=== PATIENT | female | born 1950 | race Two or more races ===

== ENCOUNTER 2025-02-21 08:57 | Outpatient (CLI) | payer MEDICARE ==
[2025-02-21 09:48] LABS: Hematocrit 43.4 % (36.0-46.0); Hemoglobin 14.9 g/dL (12.2-16.2); Mean Corpuscular Hemoglobin 30.2 pg (28.0-32.0); Mean Corpuscular Volume 87.8 fL (80.0-100.0); Nucleated Red Blood Cells % 0.0 %
[2025-02-21 09:57] LABS: Alanine Aminotransferase 17 U/L (7-40); Albumin 4.8 g/dL (3.2-4.8); Alkaline Phosphatase 65 U/L (46-116); Anion Gap 7 (5-15); BUN/Creatinine Ratio 16.9 (10.0-20.0); Blood Urea Nitrogen 14 mg/dL (9-23); Calcium 9.7 mg/dL (8.7-10.4); Carbon Dioxide 26 mmol/L (20-31); Chloride 105 mmol/L (98-107); HDL Cholesterol 48 mg/dL (40-59); Potassium 4.2 mmol/L (3.5-5.1); Sodium 138 mmol/L (136-145); Total Protein 7.5 g/dL (5.7-8.2)
[2025-02-21 09:58] LABS: Bilirubin, Total 0.4 mg/dL (0.2-1.0)
[2025-02-21 10:19] LABS: Cholesterol 294 mg/dL (< 200); Glucose 159 mg/dL (74-106); Triglycerides 264 mg/dL (< 150)
[2025-02-21 12:02] LABS: Urine Protein, UAD Negative (Negative)
== END 2025-02-21 17:00 | disposition home or self-care (01) ==
LOC: LAB 08:57
PROVIDERS: ATTEND Nurse Practitioner
DX: I10 Essential (primary) hypertension (principal); E78.5 Hyperlipidemia, unspecified; R73.9 Hyperglycemia, unspecified
CPT/HCPCS: 36415; 80053; 80061; 81001; 83036; 84443; 85025

== ENCOUNTER 2025-06-06 06:26 | Inpatient (IN) | payer MEDICARE, OTHER ==
[2025-06-06] VITALS (50 sets, daily range): BP systolic 116–174; BP diastolic 36–85; PULSE 48–144; RESP 10–24; TEMP 98.2–98.9; O2SAT 82–100
[~2025-06-06] VITALS: Ht 157.5 cm; Wt 77.0 kg
--- NOTE | 2025-06-06 06:50 | ED.PDOC ---
HPI Comments [age] year old female with a history of hypertension, diabetes here today with complaints of substernal, sharp chest pain that started at approximately 2:00 a.m. this morning. Patient states that she has never had this pain before. States that her whole body feels weak and she feels nauseous as well. No vomiting. No shortness of breath. No diaphoresis. No loss of consciousness. Does not smoke cigarettes. No other pain or symptoms. Chief Complaint: Chest Pain Time Seen by MD: 06:27 Past Medical History PAST MEDICAL HISTORY: DM, HTN Cardiovascular: reports: chest pain Gastrointestinal: reports: nausea Neurological: reports: weakness Physical Exam General Appearance: No Apparent Distress, Normal HEENT: Normal ENT Inspection, Pharynx Normal, TMs Normal Neck: Full Range of Motion, Non-Tender, Normal, Normal Inspection Respiratory: Chest Non-Tender, Lungs Clear, No Accessory Muscle Use, No Respiratory Distress, Normal Breath Sounds Cardiovascular: No Edema, No JVD, No Murmur, No Gallop, Normal Peripheral Pulses, Regular Rate/Rhythm Breast Exam: Deferred Gastrointestinal: No Organomegaly, Non Tender, No Pulsatile Mass, Normal Bowel Sounds, Soft Genitalia: Deferred Pelvic: Deferred Rectal: Deferred Extremities: No calf tenderness, Normal capillary refill, Normal inspection, Normal range of motion, Non-tender, No pedal edema Musculoskeletal : Apperance: Normal Neurologic: Alert, 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 Was a procedure done? Was a procedure done?: No CP Differential Dx Differential Diagnosis: A-fib, A-Flutter, Anxiety / Panic Attack, AV Block 1st Degree, AV Block 2nd Degree, AV Block 3rd Degree, Heart Failure, UT, Pulmonary Embolus, Ventricular Dysrhythmia, V-Fib, V-Tach Time of 1ST Reevaluation: 06:44 Reevaluation 1ST: Unchanged Consultation: Cardiology (I discussed the case extensively with Dr. Markham from cardiology who requested 3000 of heparin, qc lab technician activation, and states that he will be here in a few minutes. No other recommendations at this time.) Patient Education/Counseling: Diagnosis, Treatment Family Education/Counseling: Diagnosis, Treatment SEPSIS Sepsis Screen Physician Orders Complete Blood Count (06/06/25 06:33) Chest Portable (06/06/25 06:33) Comprehensive Metabolic Panel (06/06/25 06:33) Troponin-I Hs (06/06/25 06:33) Electrocardigram (06/06/25 06:33) Troponin-I Hs (06/06/25 07:33) Troponin-I Hs (06/06/25 09:33) Electrocardigram (06/06/25 07:33) Electrocardigram (06/06/25 09:33) Heparin Sodium (Porcine) (06/06/25 06:45) Departure 1 Departure Time of Disposition: 06:44 Impression: Primary Impression: STEMI (ST elevation myocardial infarction) Additional Impressions: History of hypertension History of diabetes mellitus Disposition: ADMITTED INPATIENT Admit to: ICU Condition: Serious Critical Care Note Critical Care Time?: No Stability Stability form required: No Heart Score Heart Score: Heart Score Response (Comments) Value History Highly Suspicious [address]-Deviation 2 Age >65 2 Risk Factors >3 or Hx ASHD 2 Troponin N/A (still pending) 0 Total 8 MURALI MARTÍNEZ MD Jun 06, 2025 06:50
[2025-06-06] MEDS: HEPARIN SODIUM (PORCINE) 5000 UNITS/ML 1ML VIAL IV ONE (06:57)
[2025-06-06] MEDS: ANGIOMAX 250 MG VIAL IV ONE ×2 (07:05→08:10)
[2025-06-06] MEDS: LIDOCAINE 2%HCL (LOCAL ANESTH.) INJ 20ML MDV ONE (07:05)
[2025-06-06] MEDS: fentaNYL CITRATE 100 MCG/2 ML VL ONE (07:05)
[2025-06-06] MEDS: SODIUM CHL 0.9% 50 ML ONE ×2 (07:05→08:10)
[2025-06-06] MEDS: VERAPAMIL 2.5MG/ML INJ 2ML VIAL IV ONE (07:05)
[2025-06-06] MEDS: MIDAZOLAM HCL 2MG/2ML 2ml VIAL (1mg/ml) ONE (07:05)
[2025-06-06] MEDS ORDERED: NITROGLYCERIN 0.4 MG SL TAB SL PRN (07:15)
[2025-06-06] MEDS ORDERED: MORPHINE SULFATE INJ 2 MG/ml SYRG IV PRN ×2 (07:15→14:30)
[2025-06-06 07:16] LABS: Hematocrit 42.2 % (36.0-46.0); Hemoglobin 14.1 g/dL (12.2-16.2); Mean Corpuscular Hemoglobin 29.4 pg (28.0-32.0); Mean Corpuscular Volume 88.2 fL (80.0-100.0); Nucleated Red Blood Cells % 0.0 %
--- NOTE | 2025-06-06 07:19 | DVHINCON2 ---
DATE OF CONSULTATION: 06/06/2025 CARDIOLOGY CONSULTATION REFERRING PHYSICIAN: ER. HISTORY OF PRESENT ILLNESS: The patient is a 74-year-old female with a history of obesity, hypertension, and diabetes coming in with chest pain. It started at about 2:00 a.m. this morning. She has not had this before. An EKG done showing ST elevation. I was called and recommended aspirin and heparin. The patient is a nonsmoker. Her family is at the bedside. She was a walk-in. PAST MEDICAL HISTORY: Hypertension, hyperlipidemia, diabetes. ALLERGIES: PATIENT IS ALLERGIC TO CODEINE. SOCIAL HISTORY: No tobacco, alcohol or illicits. REVIEW OF SYSTEMS: Positive chest pain, positive shortness of breath, positive weakness to the body, positive diaphoresis. PHYSICAL EXAMINATION: VITAL SIGNS: Heart rate is 87, respiratory rate is 20, blood pressure 152/84, O2 sat 99%. GENERAL: The patient is an obese female in no severe distress. HEAD: Normocephalic, atraumatic. ENT: Dry mucous membranes. NECK: Supple. CARDIOVASCULAR: S1, S2. Regular rate and rhythm. LUNGS: Scattered rhonchi. ABDOMEN: Obese, soft, and nontender. LOWER EXTREMITIES: No significant edema. LABORATORY DATA: Labs are all pending. ASSESSMENT/PLAN: 1. Inferior ST-segment elevation myocardial infarction. 2. Obesity. 3. Hypertension. 4. Hyperlipidemia. 5. Diabetes. PLAN: At this point, I would recommend urgent cardiac catheterization and possible intervention. I discussed the risks, benefits, and alternatives of the procedure with the patient. Her was also at the bedside as well as our nurse in ICU bed 8. She wishes to proceed. Chest x-ray was reviewed as well. Further recommendations will follow the patient's clinical course. 90 minutes of critical care time was spent. John Markham MD CM/JAKOB TID: [id number] RECEIPT: [id number]
[2025-06-06] MEDS: ATROPINE SULF 1 MG/10ml SYR ONE (07:27)
[2025-06-06 07:28] LABS: Albumin 4.2 g/dL (3.2-4.8); Alkaline Phosphatase 95 U/L (46-116); Anion Gap 10 (5-15); BUN/Creatinine Ratio 14.9 (10.0-20.0); Bilirubin, Total 0.7 mg/dL (0.2-1.0); Blood Urea Nitrogen 11 mg/dL (9-23); Calcium 9.5 mg/dL (8.7-10.4); Carbon Dioxide 23 mmol/L (20-31); Chloride 102 mmol/L (98-107); Potassium 4.0 mmol/L (3.5-5.1); Total Protein 7.3 g/dL (5.7-8.2)
--- NOTE | 2025-06-06 07:32 | DVH ---
CHEST RADIOGRAPH INDICATION: CHEST PAIN TECHNIQUE: Single frontal view of the chest was obtained COMPARISON: None FINDINGS: Lines and Tubes: None Lungs: No focal consolidation. Pleura: No effusion. No pneumothorax. Cardiomediastinal contours: Unremarkable Bones: No acute osseous abnormality. IMPRESSION: 1. No acute cardiopulmonary disease.
[2025-06-06 07:34] LABS: Alanine Aminotransferase 44 U/L (7-40); Glucose 331 mg/dL (74-106); Sodium 135 mmol/L (136-145)
[2025-06-06] MEDS: EPTIFIBATIDE INJ (2MG/ML) 10ML VIAL IV ONE ×2 (07:47→08:20)
[2025-06-06] MEDS: IODIXANOL 320MG/ML 100ML BTL IV ONE ×3 (07:56→09:38)
[2025-06-06] MEDS: EPTIFIBATIDE DRIP(0.75MG/ML) 100 ML IV SCH (08:30)
[2025-06-06] MEDS: EPTIFIBATIDE DRIP(0.75MG/ML) 100 ML IV ONE ×2 (08:35→14:54)
[2025-06-06] MEDS: TICAGRELOR 90 MG TAB ONE (08:40)
[2025-06-06] MEDS: HEPARIN IN NS 1000Units/500mL 1,500 ML ONE (09:38)
--- NOTE | 2025-06-06 10:09 | ECG ---
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
[2025-06-06] MEDS: ONDANSETRON HCL 4 MG/2 ML VIAL ONE (10:53)
[2025-06-06] MEDS: ONDANSETRON HCL 4 MG/2 ML VIAL IV ONE (10:54)
[2025-06-06] MEDS: OPTISON 3ml Vial for INJ IV ONE (10:54)
--- NOTE | 2025-06-06 13:08 | ECG ---
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
[2025-06-06] MEDS: FUROSEMIDE 20 MG/2 ML VIAL IV ONE (14:00)
[2025-06-06] MEDS ORDERED: DEXTROSE (50%) 50ML SYRG IV PRN (14:30)
--- NOTE | 2025-06-06 16:28 | DVHHP2 ---
History of Present Illness Reason for Visit: STEMI status post left heart catheterization with a two RCA stents. History of Present Illness Patient was seen and evaluated by me in recovery room after she had left heart catheterization with known diagnosis of STEMI status post two stents in RCA. Patient is currently denies any chest pain shortness of breaths. Patient denies any known cardiac history in the past. She does have known history of hypert ension dyslipidemia diabetes mellitus type 2. Cardiovascular: HTN, hyperipidemia Endocrine: Diabetes Past Surgical History: None Smoke: No ALCOHOL: none Review of Systems Review of Systems Twelve review of system are negative besides mentioned above. Allergies: Coded Allergies: Codeine (Verified Allergy, Unknown, 06/06/25) Medications Current Medications Medications Dose Ordered Sig/Chuckie Route Start Time Stop Time Status Last Admin Dose Admin Nitroglycerin 0.4 mg Q5MINP PRN SL 06/06/25 07:15 Morphine Sulfate 2 mg Q30M PRN IV 06/06/25 07:15 Hold Ticagrelor 90 mg BID PO 06/06/25 22:00 Hydralazine HCl 10 mg BIDP PRN IV 06/06/25 09:00 Aspirin 81 mg DAILY PO 06/06/25 10:00 Atorvastatin Calcium 40 mg HS PO 06/06/25 22:00 Diagnostic Test (Pha) 1 strip ACHS 06/06/25 17:00 Insulin Human Regular ACHS SC 06/06/25 17:00 Dextrose 50 ml UD PRN IV 06/06/25 14:30 Morphine Sulfate 2 mg Q4HPRN PRN IV 06/06/25 14:30 Hold Eptifibatide 100 ml @ 12 mls/hr Q8H20M IV 06/06/25 08:30 Exam Vital Signs Vital Signs Date Time Temp Pulse Resp B/P (MAP) Pulse Ox O2 Delivery O2 Flow Rate FiO2 06/06/25 14:00 138/72 06/06/25 11:15 52 20 95 06/06/25 07:02 98.6 98.6 06/06/25 06:55 Room Air* 0 21 Exam HEENT pupils are reactive Neck is supple CV is S1-S2 regular rate and rhythm Respiratory diminished breath sounds bases GI positive bowel sound Extremity no edema DIRECTOR OF AUTOMATION no motor deficit Labs/Xrays Labs Test 06/06/25 07:00 Range/Units White Blood Count 12.6 H 4.4-10.8 10^3/uL Red Blood Count 4.78 4.0-5.20 10^6/uL Hemoglobin 14.1 12.2-16.2 g/dL Hematocrit 42.2 36.0-46.0 % Mean Corpuscular Volume 88.2 80.0-100.0 fL Mean Corpuscular Hemoglobin 29.4 28.0-32.0 pg Mean Corpuscular Hemoglobin Concent 33.4 32.0-36.0 g/dL Red Cell Distribution Width 13.6 11.8-14.3 % Platelet Count 230 140-450 10^3/uL Mean Platelet Volume 8.9 6.9-10.8 fL Neutrophils (%) (Auto) 71.8 37.0-80.0 % Lymphocytes (%) (Auto) 20.3 10.0-50.0 % Monocytes (%) (Auto) 6.8 0.0-12.0 % Eosinophils (%) (Auto) 0.4 0.0-7.0 % Basophils (%) (Auto) 0.7 0.0-2.0 % Neutrophils # (Auto) 9.0 H 1.6-8.6 10 ^3/uL Lymphocytes # (Auto) 2.6 0.4-5.4 10 ^3/uL Monocytes # (Auto) 0.9 0-1.3 10 ^3/uL Eosinophils # (Auto) 0.1 0-0.8 10 ^3/uL Basophils # (Auto) 0.1 0-0.2 10 ^3/uL Nucleated Red Blood Cells 0.0 % Sodium Level 135 L 136-145 mmol/L Potassium Level 4.0 3.5-5.1 mmol/L Chloride Level 102 98-107 mmol/L Carbon Dioxide Level 23 20-31 mmol/L Anion Gap 10 5-15 Blood Urea Nitrogen 11 9-23 mg/dL Creatinine 0.74 0.550-1.02 mg/dL Glomerular Filtration Rate Calc 85 >90 mL/min BUN/Creatinine Ratio 14.9 10.0-20.0 Serum Glucose 331 H 74-106 mg/dL Calcium Level 9.5 8.7-10.4 mg/dL Total Bilirubin 0.7 0.2-1.0 mg/dL Aspartate Amino Transferase (AST) 73 H 13-40 U/L Alanine Aminotransferase (ALT) 44 H 7-40 U/L Alkaline Phosphatase 95 46-116 U/L Troponin I High Sensitivity 5950 *H </=34 ng/L Total Protein 7.3 5.7-8.2 g/dL Albumin 4.2 3.2-4.8 g/dL SEPSIS Sepsis Screen Date sepsis recognized/suspect: Jun 06, 2025 Time Sepsis recognized/suspect: 654 Recent Procedure: No On Antibiotic Therapy: No Respiratory Rate >20: No Heart Rate >90: Yes Temp<36 C (96.8 F) or >38.3 C: No SBP <90 or MAP <65 mmHG: No New Acute Mental Status Change: No Is the patient on CPAP, BIPAP,: No Physician Orders Ticagrelor (Brilinta) (06/06/25 22:00) Hydralazine Injection (Apresoline Inject (06/06/25 09:00) Atorvastatin (Lipitor) (06/06/25 22:00) Communication Order (06/06/25 08:50) Aspirin Chewable Tablet (06/06/25 10:00) Post Cath Vital Signs Q 15min (06/06/25 09:39) Post Cath Activity Protocol (06/06/25 09:39) Consistent Carb(Ccho)Diabetes (06/06/25 Lunch) Glucose Blood (Accu-Chek Comfort Curve T (06/06/25 17:00) Insulin R (Human) (Insulin R) (06/06/25 17:00) Dextrose 50% Syringe (06/06/25 14:30) Morphine Sulfate Injection (06/06/25 14:30) Eptifibatide Drip(0.75mg/Ml) (Integrilin (06/06/25 08:30) Communication Order (06/06/25 15:01) Vital Signs Date Time Temp Pulse Resp B/P (MAP) Pulse Ox O2 Delivery O2 Flow Rate FiO2 06/06/25 14:00 138/72 06/06/25 11:15 52 20 120/60 (80) 95 06/06/25 11:00 51 20 154/62 (92) 95 06/06/25 10:30 52 10 126/57 (80) 95 06/06/25 10:15 51 10 126/57 (80) 92 06/06/25 10:00 51 11 139/59 (85) 95 06/06/25 09:45 50 14 142/66 (91) 95 06/06/25 09:30 50 16 141/61 (87) 95 06/06/25 09:15 49 15 145/63 (90) 96 06/06/25 09:00 62 17 174/72 (106) 93 Laboratory Tests Test 06/06/25 07:00 White Blood Count 12.6 10^3/uL (4.4-10.8) H Medications Medications Dose Ordered Sig/Chuckie Route Start Time Stop Time Status Last Admin Dose Admin Aspirin 324 mg ONCE ONCE PO 06/06/25 07:00 06/06/25 07:02 DC 06/06/25 07:03 324 MG Bivalirudin 250 mg STK-MED ONCE IV 06/06/25 07:05 06/06/25 07:04 DC 06/06/25 07:05 250 MG Bivalirudin 250 mg STK-MED ONCE IV 06/06/25 08:10 06/06/25 08:09 DC 06/06/25 08:10 250 MG Eptifibatide 20 mg STK-MED ONCE IV 06/06/25 08:20 06/06/25 08:19 DC 06/06/25 08:20 20 MG Fentanyl Citrate 100 mcg STK-MED ONCE .ROUTE 06/06/25 07:05 06/06/25 07:04 DC 06/06/25 07:05 50 MCG Furosemide 20 mg ONCE ONCE IV 06/06/25 09:00 06/06/25 09:28 DC 06/06/25 14:00 20 MG Heparin Sodium (Porcine) 3,000 units ONCE ONCE IV 06/06/25 06:45 06/06/25 06:46 DC 06/06/25 06:57 3,000 UNITS Midazolam HCl 2 mg STK-MED ONCE .ROUTE 06/06/25 07:05 06/06/25 07:04 DC 06/06/25 07:05 1 MG Ondansetron HCl 4 mg ONCE ONCE IV 06/06/25 11:15 06/06/25 11:31 DC 06/06/25 10:54 4 MG Perflutren Protein Type A Microsphe 8.7 ml ONCE ONCE IV 06/06/25 11:00 06/06/25 11:01 DC 06/06/25 10:54 8.7 ML Ticagrelor 180 mg STK-MED ONCE .ROUTE 06/06/25 08:40 06/06/25 08:40 DC 06/06/25 08:40 180 MG Assessment/Plan Assessment/Plan 74-year-old female with a known history of hypertension, diabetes mellitus type 2, dyslipidemia who initially presented to the hospital with a chest pain since 2:00 a.m. found to have 1. STEMI status post left heart catheterization with a RCA stenosis status post two stents placement 2. Chest pain secondary to above resolved 3. Hypertension 4. Diabetes mellitus type 2 5. Dyslipidemia 6. Morbid obesity classI -continue aspirin statin Brilinta, follow up Cardiology recommendations. Plan discussed with: Patient My Orders Orders - GEO CORREIA MD Procedure Category Date Status Time Glucose Blood PHA 06/06/25 In Process (Accu-Chek Comfort 17:00 Insulin R (Human) PHA 06/06/25 In Process (Insulin R) 17:00 Dextrose 50% Syringe PHA 06/06/25 In Process 14:30 Morphine Sulfate PHA 06/06/25 In Process Injection 14:30 Date of Service: Jun 06, 2025 Billing Provider: GEO CORREIA MD Common Visit Codes: NOT BILLABLE GEO CORREIA MD Jun 06, 2025 16:28
[2025-06-06] MEDS: ACCU-CHEK COMFORT CURVE STRIP VI SCH (17:00)
[2025-06-06] MEDS: ACETAMINOPHEN 325 MG TAB PO PRN (17:49)
[2025-06-06] MEDS: InsuLIN REG 1unit/0.01ml Soln (100units/ml) SC SCH (17:50)
[2025-06-06] MEDS: TICAGRELOR 90 MG TAB PO SCH (21:09)
[2025-06-06] MEDS: ATORVASTATIN 20 MG TAB PO SCH (21:09)
[2025-06-07] VITALS (43 sets, daily range): BP systolic 104–175; BP diastolic 47–80; PULSE 39–73; RESP 9–25; TEMP 98–98.7; O2SAT 93–100
[2025-06-07] MEDS: hydrALAZINE HCL 20 MG/ML VL IV PRN (03:13)
[2025-06-07] MEDS ORDERED: ATROPINE SULF 1 MG/10ml SYR ONE (04:03)
[2025-06-07] MEDS: DOPamine 1600MCG/ML D5W 250 ML IV SCH (04:15)
[2025-06-07 04:18] LABS: Albumin 3.6 g/dL (3.2-4.8); Alkaline Phosphatase 82 U/L (46-116); Anion Gap 11 (5-15); BUN/Creatinine Ratio 23.4 (10.0-20.0); Bilirubin, Total 1.2 mg/dL (0.2-1.0); Blood Urea Nitrogen 18 mg/dL (9-23); Calcium 9.2 mg/dL (8.7-10.4); Carbon Dioxide 24 mmol/L (20-31); Chloride 100 mmol/L (98-107); Magnesium 1.9 mg/dL (1.6-2.6); Potassium 3.5 mmol/L (3.5-5.1); Total Protein 6.2 g/dL (5.7-8.2)
[2025-06-07] MEDS: DOPamine 1600MCG/ML D5W 250 ML IV ONE (04:18)
[2025-06-07 04:20] LABS: Alanine Aminotransferase 41 U/L (7-40); Glucose 252 mg/dL (74-106); Sodium 135 mmol/L (136-145)
[2025-06-07 04:23] LABS: Hematocrit 38.8 % (36.0-46.0); Hemoglobin 12.8 g/dL (12.2-16.2); Mean Corpuscular Hemoglobin 28.9 pg (28.0-32.0); Mean Corpuscular Volume 87.5 fL (80.0-100.0); Nucleated Red Blood Cells % 0.1 %
[2025-06-07] MEDS: ONDANSETRON HCL 4 MG/2 ML VIAL ONE (04:38)
[2025-06-07] MEDS: ONDANSETRON HCL 4 MG/2 ML VIAL IM ONE (04:45)
[2025-06-07] MEDS ORDERED: fentaNYL CITRATE 100 MCG/2 ML VL ONE (05:05)
[2025-06-07] MEDS ORDERED: ANGIOMAX 250 MG VIAL IV ONE ×2 (05:05→06:24)
[2025-06-07] MEDS ORDERED: SODIUM CHL 0.9% 50 ML ONE ×2 (05:05→06:24)
[2025-06-07] MEDS ORDERED: LIDOCAINE 2%HCL (LOCAL ANESTH.) INJ 20ML MDV ONE (05:05)
[2025-06-07] MEDS ORDERED: MIDAZOLAM HCL 2MG/2ML 2ml VIAL (1mg/ml) ONE (05:05)
[2025-06-07] MEDS ORDERED: IODIXANOL 320MG/ML 100ML BTL IV ONE (05:06)
--- NOTE | 2025-06-07 05:13 | DVHSR ---
APPROVED REPORT EXAM: LIMITED Two-dimensional and M-mode echocardiogram with Doppler, color Doppler and Optison. Blood Pressure: 194/82 mmHg INDICATION STEMI RISK FACTORS Height: 62, Weight: 165 DIMENSIONS LVDd 3.7 (3.8-5.7cm) LA (2D) 3.2 (1.9-4.0cm) Aortic Root 4.0 (2.0-3.7cm) LVDs 2.6 (2.5-4.0cm) LA (MM) (1.9-4.0cm) Aortic Cusp Exc 1.8 (1.5-2.0cm) EF (%) 56.0 (55-70%) Rt. Atrium 3.5 (1.9-4.0cm) Asc. Aorta cm Mitral Valve Mitral Mitral Stenosis E wave 0.62m/s MV Mean GR. mmHg A wave 1.09m/s MV Peak GR. mmHg E/A ratio 0.6 2D MVA cm2 DECEL Time 267ms PRESS 1/2 Time ms Aortic Valve Aortic Valve Aortic Stenosis V1 0.83m/s AO Mean GR. 3mmHg V2 1.10m/s AO Peak GR. 5mmHg LVOT Diameter 1.8 (1.8-2.4cm) Doppler UTE 1.92cm2 AI P 1/2 Time 641.23ms Tricuspid Valve TR Velocity 1.71m/s RVSP 14mmHg Other Information Technically limited study due to body habitus. Optison used. Optison images are at the end of study. Conclusion lvef 35-40% optison used for LV opacification RV low normal funtion left atrium enlarged trace AI mild tricuspid regurg
[2025-06-07] MEDS ORDERED: ONDANSETRON HCL 4 MG/2 ML VIAL ONE (05:39)
[2025-06-07 05:40] LABS: INR 1.01 (0.9-1.15); Partial Thromboplastin Time 31.3 SEC (24.5-34.5); Prothrombin Time 10.7 sec (9.3-11.8)
--- NOTE | 2025-06-07 06:07 | DVHOP ---
DATE OF SURGERY: 06/06/2025 PREOPERATIVE DIAGNOSIS: Massive inferior ST-elevation myocardial infarction. POSTOPERATIVE DIAGNOSES: Massive inferior ST-elevation myocardial infarction. DESCRIPTION OF PROCEDURE: The patient signed informed consent, understanding risks, benefits, and alternatives of procedure, she wished to proceed. She was brought to the laboratory cureman urgently in n.p.o. state. She was prepped in a sterile fashion. Sedation was used per cardiac cath protocol. I gave 1 mL of 2% lidocaine to her right wrist with antegrade femoral puncture. I cannulated the right radial artery and placed a 6-[place] Glides[place]ath Slender. Next, an intra-arterial spasmolytic was administered. I took a [place] catheter, 5-[place] for coronary angiogram. FINDINGS: ? Left main: Very short left main bifurcates into LAD and circumflex. No severe stenosis. ? Circumflex: Large vessel proximally patent giving off several OM branches with diffuse significant disease. Mid circumflex has an 80-90% lesion and distal circumflex is patent. ? LAD: LAD is a severely atretic diseased vessel, proximally heavily diseased and calcified, barely 2 mm. Mid LAD is a complete DRYWALL FINISHER FOREMAN with antegrade collaterals and distal LAD is barely 1.5 mm with several diagonal branches that are extensively diseased. ? RCA: RCA proximally is subacutely occluded. It almost looks like a DRYWALL FINISHER FOREMAN. INTERVENTION: Over a JR4 guide, Angiomax bolus and drip had been initiated. I brought in a 0.014 x 190 cm BMW wire and I crossed to the distal RCA with ease. I brought a 2.0 balloon with multiple balloon inflations. Unfortunately, there was extensive thrombus throughout this entire RCA in the proximal and in the distal portion. I brought a Penumbra catheter several times, probably 3 times during the procedure for mechanical thrombectomy. Each time, I would also use a 2.5 balloon for post-dilatation. Unfortunately, the vessel would continue to re-thrombose. The patient was given intracoronary Integrilin. At this point, I brought 3.0 balloon and performed balloon angioplasty to the proximal portion and I brought a Penumbra catheter for a third time. This was more successful regaining MONIQUE-2 flow. At this point, I decided to proceed with stenting to the proximal and to the ostium of the RCA with two 3.5 mm stents. Please see operative report for full study details. Then following this, angiogram was performed showing excellent flow proximally in the midportion. The distal RCA still has thrombus within it in the very distal portion, not amenable to any intervention mechanically. The patient's hemodynamics were more stable. Her chest pain was free at that time. At this point, the procedure was completed. The patient was started on Integrilin drip. CONCLUSION: Successful PTCA and PCI of subacutely occluded 100% RCA STEMI with extensive heavy thrombus throughout after mechanical thrombectomy and placement of 2 drug-eluting stents. PLAN: ? Admit to ICU. ? The patient is in critical condition. ? The patient has extensive severe coronary artery disease in multiple territories that is likely chronic. ? Check stat echocardiogram. ? Integrilin drip. ? Aspirin and ticagrelor. ? Continue to monitor the patient. John Markham MD CM/APRIL TID: [id number] RECEIPT: [id number]
[2025-06-07] MEDS ORDERED: EPTIFIBATIDE INJ (2MG/ML) 10ML VIAL IV ONE (06:08)
--- NOTE | 2025-06-07 07:52 | DVHPN2 ---
Progress Note Date Seen: Jun 07, 2025 Medical Necessity Reason Pt with a Central, PICC or Fol: No Subjective Other Systems: pt was overnight stable untilabout 330 am pt had CHB i was notified and started dopamine and rcommend to bring cath team in Objective vital signs Vital Sign Date Time Temp Pulse Resp B/P (MAP) Pulse Ox O2 Delivery O2 Flow Rate FiO2 06/07/25 04:30 59 18 146/80 (102) 99 06/07/25 04:00 98.0 98.0 06/07/25 04:00 Nasal Cannula* 2 28 Total Intake and Output 06/06/25 06/06/25 06/07/25 15:00 23:00 07:00 Intake Total 84 ml 336 ml 427.031 ml Balance 84 ml 336 ml 427.031 ml medications Current Medications Medications Dose Ordered Sig/Chuckie Route Start Time Stop Time Status Last Admin Dose Admin Nitroglycerin 0.4 mg Q5MINP PRN SL 06/06/25 07:15 Morphine Sulfate 2 mg Q30M PRN IV 06/06/25 07:15 Hold Ticagrelor 90 mg BID PO 06/06/25 22:00 06/06/25 21:09 90 MG Hydralazine HCl 10 mg BIDP PRN IV 06/06/25 09:00 06/07/25 03:13 10 MG Aspirin 81 mg DAILY PO 06/06/25 10:00 Atorvastatin Calcium 40 mg HS PO 06/06/25 22:00 06/06/25 21:09 40 MG Diagnostic Test (Pha) 1 strip ACHS 06/06/25 17:00 06/06/25 21:12 1 STRIP Insulin Human Regular ACHS SC 06/06/25 17:00 06/06/25 21:14 8 UNITS Dextrose 50 ml UD PRN IV 06/06/25 14:30 Morphine Sulfate 2 mg Q4HPRN PRN IV 06/06/25 14:30 Hold Eptifibatide 100 ml @ 12 mls/hr Q8H20M IV 06/06/25 08:30 06/07/25 00:05 12 MLS/HR Acetaminophen 650 mg Q4HP PRN PO 06/06/25 17:15 06/06/25 17:49 650 MG Dopamine HCl/ Dextrose 250 ml @ 7.031 mls/ hr Q24H IV 06/07/25 04:15 06/07/25 04:15 7.031 MLS/HR Examination: GENERAL:Abnormal, HEENT:Abnormal, LUNGS:Abnormal, CVS:Abnormal, ABDOMEN:Abnormal laboratory and microbiology Laboratory Tests 06/07/25 03:44 Test 06/07/25 03:44 Range/Units Serum Glucose 252 H 74-106 mg/dL Problem List/Assessment/Plan Problem List/Assessment/Plan stemi cad moderate LV dysfunction dm obesity morbid ckd HTN HL pt brought back to CL, showing RCA re thrombosed, s/p cryptanalyst and mechanical thrombectomy improving tom flow from 0 to abut 2. there is still extensive thrombus. TVP was placed pt was intermittent CHB and SR in catholic priest pt off dopamine now restart integrilin gtt spok to family and updated them regarding pts condition, all questions answered consider tx to higher level of care for possible cabg place zee iv lasix pressors as needed guarded prognosis 90 mins critical care time spent Plan discussed with: Patient My Orders My Orders Orders - PREETHI ECKERT MD Procedure Category Date Status Time Ticagrelor (Brilinta) PHA 06/06/25 In Process 22:00 Hydralazine Injection PHA 06/06/25 In Process (Apresoline Inject 09:00 Atorvastatin (Lipitor) PHA 06/06/25 In Process 22:00 Echo 2d Mode Cardiac US 06/06/25 Resulted DOP 08:49 Communication Order ORDERS 06/06/25 Transmitted 08:50 Aspirin Chewable PHA 06/06/25 In Process Tablet 10:00 Post Cath Vital Signs MAGEN 06/06/25 In Process Q 15min 09:39 Post Cath Activity MAGEN 06/06/25 In Process Protocol 09:39 Consistent DIET 06/06/25 Transmitted Carb(Ccho)Diabetes Lunch Eptifibatide PHA 06/06/25 In Process Drip(0.75mg/Ml) 08:30 Communication Order ORDERS 06/06/25 Transmitted 15:01 Communication Order ORDERS 06/06/25 Transmitted 19:36 Mrsa Screen JACQUELYN 06/06/25 In Process 18:52 Dopamine 1600mcg/Ml PHA 06/07/25 In Process D5W 04:15 Cl Left Heart Cath CL 06/07/25 Taken 04:59 Electrocardigram EKG 06/07/25 Logged 02:00 Date of Service: Jun 07, 2025 Billing Provider: PREETHI ECKERT MD Common Visit Codes: NOT BILLABLE PREETHI ECKERT MD Jun 07, 2025 07:52
--- NOTE | 2025-06-07 08:21 | DVHOP ---
DATE OF SURGERY: 06/07/2025 PREOPERATIVE DIAGNOSIS: Complete heart block. POSTOPERATIVE DIAGNOSES: Acute OH, complete heart block. PROCEDURES PERFORMED: * Ultrasound-guided vascular access to the artery and then common femoral artery and common femoral vein. * Placement of transvenous pacemaker implantation. * Coronary angiogram. * Conscious sedation administration and supervision less than 15 minutes as well as greater than 15 minutes. * PTCA, 1 vessel. * Manual aspiration, 1 vessel. * Mechanical thrombectomy attempted, 1 vessel. * Acute OH intervention. * Central venous catheter placement. DESCRIPTION OF PROCEDURE: We managed to obtain emergency consent for the patient. Within about an hour, the patient appeared to go into complete heart block in the ICU with some shortness of breath. I was notified and recommended starting dopamine 2.5 and calling the golf course laborer team in for a re-look angiogram. The patient had been on Integrilin overnight and throughout the day yesterday after a massive STEMI with extensive thrombus despite multiple interventions and attempts to remove thrombus. We had excellent flow at the termination of the procedure on 06/06. The patient was stable on Integrilin until this morning. We discontinued the Integrilin. The patient was brought to the golf course laborer. She was prepped in a sterile fashion. I gave 8 mL of 2% lidocaine to her right groin. I identified her right common femoral artery and right common femoral vein with an 18-gauge Cook needle. I cannulated the right common femoral vein and placed a 6-Chilean sheath and I cannulated the right common femoral artery and also placed a 6-Chilean sheath. Iliofemoral angiogram was performed showing appropriate arteriotomy site. I took a 6-Chilean JR4 catheter and angiogram of RCA. This shows the proximal RCA was acutely occluded, thrombosed proximally. I switched out to a JR4 guide. Angiomax bolus and drip had been initiated. I brought in a 0.014 Whisper wire and I was able to cross into the distal RCA into the RPL. At this point, I took a 2.0 balloon 15 mm and performed balloon angioplasty up to 12 atmospheres with several inflations in the proximal and then in the mid to distal portion. Trying to regain some flow, but there was still extensive thrombus. At this point, I had to switch out from a JR4 guide to using an AL 0.7 guide for better support, and I performed balloon angioplasty with a 2.0 balloon. Following this, I tried a Penumbra catheter, but it would not cross distally. I took a 2.5 balloon and performed balloon angioplasty. Then, I decided to take a microcatheter, Teleport, into the distal RCA. I gave intracoronary Integrilin as well as intracoronary nitroglycerin to the distal RCA. At this point, I rewired into the RPL initially and performed balloon angioplasty distally, and then I rewired into the RPDA as well and performed balloon angioplasty with a 2.0 balloon, improving the flow. I took a manual aspiration with [place] catheter and I was able to remove thrombus from the mid portion of the RCA as well. At this point, I took a microcatheter again into the RPDA and I injected 200 mcg of intracardiac Cardene. This did improve flow as well into the distal bed. Then, I took a 3.5 NC balloon and performed balloon angioplasty to the 2 stents that were placed on 06/06, inflated up to 12 atmospheres twice each about 15 seconds. Then, I removed the balloon. Angiogram was performed. There was significant improvement in the flow, but there was still extensive thrombus in the mid to distal RCA. At this point, all available techniques and options were performed and the patient's heart rate had improved. She had been briefly on dopamine, which I decided to discontinue. At this point, we decided to remove all guides and wires. A 6-Chilean Angio-Seal was used for closure after I placed the transvenous pacer. So via the common femoral vein, we placed the 5-Chilean transvenous pacer into the RV septum. We paced at 120 beats a minute as the patient's intrinsic rhythm had kicked in to about 100 and we had excellent capture to as low as 2 mA. I sutured in place and left it at 6 mA and we will backup pace the patient at 60. CONCLUSION: Successful PTCA of an acutely rethrombosed extensive RCA STEMI thrombosis. PLAN: * I will discuss with Dr. Desai to see if the patient could be transferred to possible higher level of care and see if she may need open-heart surgery given the extensive CAD. * Start Integrilin drip. * Transvenous pacer is in place. * Pressors as needed. John Markham MD CM/TARA TID: [id number] RECEIPT: [id number]
[2025-06-07] MEDS: FUROSEMIDE 20 MG/2 ML VIAL IV ONE (09:10)
--- NOTE | 2025-06-07 15:52 | DVHDS2 ---
Discharge Summary Date of Admission Jun 06, 2025 at 07:10 Date of Discharge: Jun 07, 2025 Labs/Diagnostic Data: Laboratory Results Test 06/07/25 13:35 06/07/25 03:44 POC Glucose 298 mg/dl (70-106) White Blood Count 13.0 10^3/uL (4.4-10.8) Red Blood Count 4.44 10^6/uL (4.0-5.20) Hemoglobin 12.8 g/dL (12.2-16.2) Hematocrit 38.8 % (36.0-46.0) Mean Corpuscular Volume 87.5 fL (80.0-100.0) Mean Corpuscular Hemoglobin 28.9 pg (28.0-32.0) Mean Corpuscular Hemoglobin Concent 33.0 g/dL (32.0-36.0) Red Cell Distribution Width 13.8 % (11.8-14.3) Platelet Count 219 10^3/uL (140-450) Mean Platelet Volume 9.1 fL (6.9-10.8) Neutrophils (%) (Auto) 69.0 % (37.0-80.0) Lymphocytes (%) (Auto) 21.5 % (10.0-50.0) Monocytes (%) (Auto) 8.5 % (0.0-12.0) Eosinophils (%) (Auto) 0.5 % (0.0-7.0) Basophils (%) (Auto) 0.5 % (0.0-2.0) Neutrophils # (Auto) 9.0 10 ^3/uL (1.6-8.6) Lymphocytes # (Auto) 2.8 10 ^3/uL (0.4-5.4) Monocytes # (Auto) 1.1 10 ^3/uL (0-1.3) Eosinophils # (Auto) 0.1 10 ^3/uL (0-0.8) Basophils # (Auto) 0.1 10 ^3/uL (0-0.2) Nucleated Red Blood Cells 0.1 % Prothrombin Time 10.7 sec (9.3-11.8) Prothrombin Time INR 1.01 (0.9-1.15) Activated Partial Thromboplast Time 31.3 SEC (24.5-34.5) Sodium Level 135 mmol/L (136-145) Potassium Level 3.5 mmol/L (3.5-5.1) Chloride Level 100 mmol/L (98-107) Carbon Dioxide Level 24 mmol/L (20-31) Anion Gap 11 (5-15) Blood Urea Nitrogen 18 mg/dL (9-23) Creatinine 0.77 mg/dL (0.550-1.02) Glomerular Filtration Rate Calc 81 mL/min (>90) BUN/Creatinine Ratio 23.4 (10.0-20.0) Serum Glucose 252 mg/dL (74-106) Calcium Level 9.2 mg/dL (8.7-10.4) Magnesium Level 1.9 mg/dL (1.6-2.6) Total Bilirubin 1.2 mg/dL (0.2-1.0) Aspartate Amino Transferase (AST) 88 U/L (13-40) Alanine Aminotransferase (ALT) 41 U/L (7-40) Alkaline Phosphatase 82 U/L (46-116) Troponin I High Sensitivity 8131 ng/L (</=34) Total Protein 6.2 g/dL (5.7-8.2) Albumin 3.6 g/dL (3.2-4.8) Other Laboratory Tests 06/07/25 03:44 Brief Hx & Hospital Course: 74-year-old female with a known history of hypertension, diabetes mellitus type 2, dyslipidemia who initially presented to the hospital with a chest pain for one day found to have STEMI. Patient was status post left heart catheterization with the RCA is two stents placement. Overnight patient went bradycardia again eventually have complete heart block with the vomiting. Patient was taken to irrigation laborer again and angioplasty of the RCA was done as well as transvenous pacemaker was placed. Patient also has a triple-vessel disease Dr. Markham recommended higher level of care for CABG. Patient will be discharged to higher level of care for open heart surgery with the Cardiothoracic surgery. This was explained to the patient in detail who understand verbalized understanding agreeable to plan. All the paperwork and transfer back agreement has been signed. Condition at Discharge: Guarded Final Diagnosis/Problems List 74-year-old female with a known history of hypertension, diabetes mellitus type 2, dyslipidemia who initially presented to the hospital with a chest pain since 2:00 a.m. found to have 1. STEMI status post left heart catheterization with a RCA stenosis status post two stents placement 2. Complete heart block overnight, status post transvenous pacemaker, status post angioplasty again of the RCA, recommended higher level of care for CABG 3. Hypertension 4. Diabetes mellitus type 2 5. Dyslipidemia 6. Morbid obesity classI Discharge Disposition: Acute Care Facility SNF Discharge Will this Physician continue t: No Discharge Instruct/Medications Diet: Cardiac 2g Na,low cholest Activity: See Comment Activity comment: Patient is being transferred to higher level of care inpatient Follow Up/Referral: Please follow up with Cardiology and Cardiothoracic surgery at higher level of care for CABG Medications: Medication reconciled as in the chart. Discharge Statement: "Patient was advised to return to the ER or call 911 if any headaches, dizziness, shortness of breath, chest pain, abdominal pain, bleeding, fevers, or worsening of medical condition. Patient was counseled about treatment plan, medications, possible side effects, patientverbalized understanding. All questions were answered to the best of my ability. This discharge took greater then 30 minutes in planning, reviewing documentation, counseling the patient, and discussing with other team members." ASSESSMENT ASSESSMENT Assessment 74-year-old female with a known history of hypertension, diabetes mellitus type 2, dyslipidemia who initially presented to the hospital with a chest pain since 2:00 a.m. found to have 1. STEMI status post left heart catheterization with a RCA stenosis status post two stents placement 2. Complete heart block overnight, status post transvenous pacemaker, status post angioplasty again of the RCA, recommended higher level of care for CABG 3. Hypertension 4. Diabetes mellitus type 2 5. Dyslipidemia 6. Morbid obesity classI Date of Service: Jun 07, 2025 Billing Provider: GEO CORREIA MD Common Visit Codes: NOT BILLABLE GEO CORREIA MD Jun 07, 2025 15:52
--- NOTE | 2025-06-08 10:56 | ECG ---
[facility] Test Date: 2025-06-07 Test Time: 03:47:46 Pat Name: MILEY AMADOR Department: icu Room: [address] [place] [address] A Gender: F Ferry Captain: andria : 1950 Requested By: PREETHI ECKERT Order Number: [id number] Reading MD: Chinedu Gagnon Measurements Intervals [place] Rate: 39 P: 49 HI: 280 QRS: -12 QRSD: 78 T: 127 QT: 565 QTc: 456 Interpretive Statements Sinus bradycardia Prolonged HI interval LVH with secondary repolarization abnormality Inferior infarct, acute (RCA) Probable RV involvement, suggest recording right precordial leads Electronically Signed On 06-08-2025 18:27:41 PST by Chinedu Gagnon Please click the below link to view image of tracing.
== END 2025-06-07 17:49 | disposition short-term general hospital (02) | DRG 360 ==
LOC: ER 06:28 → OVERFLOW 07:10 → ICU WEST 18:41
PROVIDERS: ADMIT Internal Medicine; ATTEND Internal Medicine
PROC: 02C03ZZ Extirpation of Matter from Coronary Artery, One Artery, Percutaneous Approach (ICD-10-PCS; principal; 2025-06-06)
PROC: 027035Z Dilation of Coronary Artery, One Artery with Two Drug-eluting Intraluminal Devices, Percutaneous Approach (ICD-10-PCS; 2025-06-06)
PROC: 3E073PZ Introduction of Platelet Inhibitor into Coronary Artery, Percutaneous Approach (ICD-10-PCS; 2025-06-06)
PROC: B211YZZ Fluoroscopy of Multiple Coronary Arteries using Other Contrast (ICD-10-PCS; 2025-06-06)
PROC: 02703ZZ Dilation of Coronary Artery, One Artery, Percutaneous Approach (ICD-10-PCS; 2025-06-07)
PROC: 3E073PZ Introduction of Platelet Inhibitor into Coronary Artery, Percutaneous Approach (ICD-10-PCS; 2025-06-07)
PROC: B41FYZZ Fluoroscopy of Right Lower Extremity Arteries using Other Contrast (ICD-10-PCS; 2025-06-07)
PROC: B211YZZ Fluoroscopy of Multiple Coronary Arteries using Other Contrast (ICD-10-PCS; 2025-06-07)
PROC: 5A1223Z Performance of Cardiac Pacing, Continuous (ICD-10-PCS; 2025-06-07)
DX: I21.19 ST elevation (STEMI) myocardial infarction involving other coronary artery of inferior wall (principal); I44.2 Atrioventricular block, complete; E11.22 Type 2 diabetes mellitus with diabetic chronic kidney disease; E66.01 Morbid (severe) obesity due to excess calories; I12.9 Hypertensive chronic kidney disease with stage 1 through stage 4 chronic kidney disease, or unspecified chronic kidney disease; N18.9 Chronic kidney disease, unspecified; E78.5 Hyperlipidemia, unspecified; I25.10 Atherosclerotic heart disease of native coronary artery without angina pectoris; Z88.5 Allergy status to narcotic agent; Z79.899 Other long term (current) drug therapy; Z68.30 Body mass index [BMI] 30.0-30.9, adult
CPT/HCPCS: 33210; 36415; 71045; 75710; 80053; 82962; 83735; 84484; 85025; 85610; 85730; 87081; 87086; 92941; 92973; 93005; 93306; 93454; 99152; C1751; G0378; J1815; J2250; J2405; Q9967